=== PATIENT | female | born 1980 | race Caucasian/White ===

== ENCOUNTER → 2017-03-08 | Outpatient (CLI) | payer MEDICARE, SELFPAY | PROVIDERS: Visit Provider Nurse Practitioner Obstetrics & Gynecology | DX: N76.4 Abscess of vulva (principal); N92.0 Excessive and frequent menstruation with regular cycle | CPT/HCPCS: 87070 ==

== ENCOUNTER → 2017-04-10 15:02 | Outpatient (CLI) | payer MEDICARE, MEDICAID, SELFPAY ==
[2017-04-13 08:48] LABS: FSH 5.5 mIU/mL (.); LH 2.8 mIU/mL (.)
== END ==
PROVIDERS: PCP Emergency Medicine; Visit Provider Nurse Practitioner Obstetrics & Gynecology
DX: N93.9 Abnormal uterine and vaginal bleeding, unspecified (principal)
CPT/HCPCS: 36415; 83001; 83002

== ENCOUNTER 2017-04-24 10:45 | Observation (INO) | payer MEDICARE, MEDICAID, SELFPAY ==
[2017-04-24] VITALS (22 sets, daily range): BP systolic 103–138; BP diastolic 55–86; PULSE 18–106; RESP 16–20; TEMP 36.3–43; O2SAT 85–100; BMI 33.7
--- NOTE | 2017-04-24 07:03 | P.PN_ITS ---
[facility] Anesthesia Checklist - Patient Identification Patient Identification: Arm Band, Verbal (Name & ) - Structural Data Admitted From: Home [facility] for Planned Operative Procedure(s) Verified: Yes Verified Documents: Surgical Consent - NPO Status Verified Time NPO: 03:00 - Chart Verification Results Verified: BMP - Additional verifications Patient : No Anesthesia Reactions: No Hx Blood Transfusions: No Blood Transfusion Reaction: No Cephalosporin Allergy: No Previous Colonoscopy: No - Cardiovascular Assessment Heart Sounds: S1 & S2 Pulse Strength: Baseline Pulse Rhythm: Regular Peripheral Edema: No - Airway Assessment C-Spine Mobility Assessed: Yes TMJ Mobility Assessed: Yes Dentition: Good Dentition - Neurological Assessment Level of Consciousness: Awake, Alert, Appropriate Hx Seizures: No Numbness or tingling in extremities: No - Genitourinary Assessment Voided vocational examiner to O.R.: Yes - Anesthesia Plan Anesthesia Risk discussed: Yes ASA Class: III Anesthesia Type: General [facility] Anesthesia HX I have reviewed the patient's past medical history: Yes Medical History: Reports:: Anxiety, Asthma, Cancer (uterine), Hypertension, Migraine, Seizures Denies:: Diabetes Mellitus Type 1, Diabetes Mellitus Type 2, Internal Pacemaker, MRSA Other Surgeries: Yes: No Previous Surgery, Other. No: Pacemaker Amputation: No Fractures: No *Family Hx:: Cancer, Hypertension, Diabetes, Heart Attack, Hyperlipidemia, Asthma
[2017-04-24 07:23] LABS: Basophils % 0.4 % (0.1-2.0); Eosinophils # 0.1 K/mm3 (0.0-0.4); Eosinophils % 1.9 % (0.1-12.0); Hematocrit 41.1 % (37.0-47.0); Hemoglobin 13.3 g/dL (12.2-16.2); Lymphocytes # 1.9 K/mm3 (0.7-4.5); Lymphocytes % 24.8 K/mm3 (10-50); Mean Corpuscular HGB Conc 32.3 g/dL (31.8-35.4); Mean Corpuscular Hemoglobin 29.3 pg (27.0-31.2); Mean Corpuscular Volume 90.8 fl (81-99); Mean Platelet Volume 7.9 fl (7.4-10.4); Monocytes # 0.5 K/mm3 (0.1-1.0); Monocytes % 6.6 % (1.7-9.3); Neutrophils % 66.3 % (37.0-80.0); Platelet Count 158 K/mm3 (142-424); Red Blood Count 4.53 M/mm3 (4.20-5.40); Red Cell Distribution Width 13.8 % (11.5-17.5); White Blood Count 7.6 K/mm3 (4.8-10.8)
[2017-04-24 07:40] LABS: HCG Qualitative, Serum Negative (Negative)
[2017-04-24 07:46] LABS: Anion Gap 12.6 mEq/L (5-15); Blood Urea Nitrogen 4 mg/dL (7-18); Carbon Dioxide 25 mmol/L (21.0-32.0); Chloride 106 mmol/L (98-107); Creatinine Clearance Estimated 155 mL/min (0-300); Estimated Glomerular Filt Rate 70 ml/min (>60); GFR (African American) 85 ML/MIN (>60); Glucose 100 mg/dL (74-106); Potassium 3.6 mmoL/L (3.5-5.1); Sodium 140 mmol/L (136-145)
--- NOTE | 2017-04-24 09:55 | HMH.OPNOTE ---
Date of procedure: 04/24/17 Pre-op Diagnosis:: Menorrhagia, dysmenorrhea, irregular periods, pelvic pain Post-op diagnosis:: same Procedure performed:: Laparoscopically assisted vaginal hysterectomy, bilateral salpingectomy Surgeon:: Harmeet Medina MD Pharmacist Critical Care(s):: Cheryl Pederson AUDIO VISUAL PRODUCTION SPECIALIST:: Beck Ramos Anesthesia: GETA Estimated blood loss (mL): 400 Clinical Note:: She is a 36-year-old lady who complains of heavy painful periods. On examination of her uterus it was exquisitely tender to palpate. She also has irregular periods. After having discussed the risks and benefits she elected to have a left apically assisted vaginal hysterectomy and bilateral salpingectomy. Operative findings:: She had a normal-appearing anteverted uterus that was somewhat bulky. Both ovaries and tubes appeared normal. The upper abdomen as well as the pelvis appeared noted Operative note:: She was taken to the operating room where general anesthesia was found to be adequate. She was prepped and draped in the normal sterile fashion in the semilithotomy position. A weighted speculum was placed in the vagina and the anterior lip of the cervix was grasped with a tenaculum. I then inserted a Jazlyn uterine manipulator into the uterine cavity and insufflated the balloon. I changed gloves and injected 10 cc of 0.5% ropivacaine around the umbilicus. I made a small incision within the umbilicus and inserted a Veress needle into the abdominal cavity. The abdominal cavity was then insufflated with carbon dioxide gas to a pressure of 20 mmHg. I then inserted an 11 mm trocar under direct vision. I injected through and through the abdominal wall in the midline, made a small incision here and inserted a 5 mm trocar under direct vision. I then identified the inferior epigastric arteries on the left side, injected through and through and inserted an 11 mm trocar under direct vision. An 11 mm trocar was similarly placed in the right lower quadrant. The left round ligament was then cut with harmonic scalpel. This was followed by the left tube which was cut through with harmonic scalpel. I then grasped the utero-ovarian ligament and using harmonic scalpel on coagulation mode I cut through this. I then took down the bladder anteriorly to the midline. I took down the posterior aspect of the broad ligament to the level of the uterosacral ligament on the left side. I then skeletonized the uterine arteries on the left side and applied hemoclips to the uterine arteries. Staying adjacent to the cervix I then cauterized the uterine arteries and cut them with harmonic scalpel. I then further freed up the bladder anteriorly. I then turned my attention to the right side where I took down the right round ligament. This is followed by the anterior peritoneum where I joined up with the midline on the other side. I further took down the bladder anteriorly. Followed by the right tube and using I then took down the posterior aspect of the broad ligament to the level of the uterosacral the left side. The uterine arteries on the right side were then skeletonized and hemoclips were applied. Using harmonic scalpel adjacent to the cervix I took down the uterine arteries with coagulation mode. At this point in time was noted that the uterus was completely ischemic. I further took down the bladder at this point. The right tube was then grasped at its distal end and using harmonic scalpel I cut along the mesosalpinx. The tube was removed. This is simply performed on the patient's left side. Both ovaries appeared normal. After once again assuring hemostasis we then turned our attention to the vaginal portion of the surgery. Patient was placed in the lithotomy position and a weighted speculum is placed in the vagina. The anterior and posterior lip of the cervix were grasped with Walls tenacula. I then injected 20 cc of 1% Xylocaine with epinephrine circumferentially about the cervix. I
--- NOTE | 2017-04-24 10:06 | HMH.ANESI ---
[facility] Anesthesia Record Part I Intake, IV Amount: 900 Estimated blood loss (mL): 400 Urine output (mL): 300 Blood Products used (#): none Blood Pressure: 138/69 SaO2: 100 Pulse Rate: 106 Respiratory Rate: 18 Temperature: 97.7 F Patient is:: Drowsy Stable to PACU at:: 10:06
--- NOTE | 2017-04-24 10:08 | P.OP_ITS ---
Date of procedure: 04/24/17 Pre-op Diagnosis:: Menorrhagia, dysmenorrhea, irregular periods, pelvic pain Post-op diagnosis:: same Procedure performed:: Laparoscopically assisted vaginal hysterectomy, bilateral salpingectomy Surgeon:: Harmeet Medina MD Armored Machine Operator(s):: Cheryl Pederson ELECTRICAL ACCESSORIES I ASSEMBLER:: Beck Ramos Anesthesia: GETA Estimated blood loss (mL): 400 Clinical Note:: She is a 36-year-old lady who complains of heavy painful periods. On examination of her uterus it was exquisitely tender to palpate. She also has irregular periods. After having discussed the risks and benefits she elected to have a left apically assisted vaginal hysterectomy and bilateral salpingectomy. Operative findings:: She had a normal-appearing anteverted uterus that was somewhat bulky. Both ovaries and tubes appeared normal. The upper abdomen as well as the pelvis appeared noted Operative note:: She was taken to the operating room where general anesthesia was found to be adequate. She was prepped and draped in the normal sterile fashion in the semilithotomy position. A weighted speculum was placed in the vagina and the anterior lip of the cervix was grasped with a tenaculum. I then inserted a Jazlyn uterine manipulator into the uterine cavity and insufflated the balloon. I changed gloves and injected 10 cc of 0.5% ropivacaine around the umbilicus. I made a small incision within the umbilicus and inserted a Veress needle into the abdominal cavity. The abdominal cavity was then insufflated with carbon dioxide gas to a pressure of 20 mmHg. I then inserted an 11 mm trocar under direct vision. I injected through and through the abdominal wall in the midline , made a small incision here and inserted a 5 mm trocar under direct vision. I then identified the inferior epigastric arteries on the left side, injected through and through and inserted an 11 mm trocar under direct vision. An 11 mm trocar was similarly placed in the right lower quadrant. The left round ligament was then cut with harmonic scalpel. This was followed by the left tube which was cut through with harmonic scalpel. I then grasped the utero-ovarian ligament and using harmonic scalpel on coagulation mode I cut through this. I then took down the bladder anteriorly to the midline. I took down the posterior aspect of the broad ligament to the level of the uterosacral ligament on the left side. I then skeletonized the uterine arteries on the left side and applied hemoclips to the uterine arteries. Staying adjacent to the cervix I then cauterized the uterine arteries and cut them with harmonic scalpel. I then further freed up the bladder anteriorly. I then turned my attention to the right side where I took down the right round ligament. This is followed by the anterior peritoneum where I joined up with the midline on the other side. I further took down the bladder anteriorly. Followed by the right tube and using I then took down the posterior aspect of the broad ligament to the level of the uterosacral the left side. The uterine arteries on the right side were then skeletonized and hemoclips were applied. Using harmonic scalpel adjacent to the cervix I took down the uterine arteries with coagulation mode. At this point in time was noted that the uterus was completely ischemic. I further took down the bladder at this point. The right tube was then grasped at its distal end and using harmonic scalpel I cut along the mesosalpinx. The tube was removed. This is simply performed on the patient's left side. Both ovaries appeared normal. After once again assuring hemostasis we then turned our attention to the vaginal portion of the surgery.
--- NOTE | 2017-04-24 10:10 | P.PN_ITS ---
[facility] Anesthesia Record Part I Intake, IV Amount: 900 Estimated blood loss (mL): 400 Urine output (mL): 300 Blood Products used (#): none Blood Pressure: 138/69 SaO2: 100 Pulse Rate: 106 Respiratory Rate: 18 Temperature: 97.7 F Patient is:: Drowsy Stable to PACU at:: 10:06
--- NOTE | 2017-04-24 10:11 | P.PN_ITS ---
[facility] Anesthesia Record Part II Discharge Time: 10:36 Destination: Nursing Department PACU nurse assessment reviewed?: Yes Patient Condition:: Good Anesthesia Complications:: None
--- NOTE | 2017-04-24 10:27 | PC.NURSE ---
LATE ENTRY 10:27 REPORT RECEIVED FROM Keiko OLIVEIRA RN. PATIENT ARRIVED ON UNIT AT 10:30.
--- NOTE | 2017-04-24 10:54 | PC.NURSE ---
1006-REPORT RECEIVED FROM PIOTR BAGLEY/JORGE CORDOBA
--- NOTE | 2017-04-24 10:56 | PC.NURSE ---
1016-PT EATING ICE CHIPS W/OUT DIFFICULTY
--- NOTE | 2017-04-24 11:02 | PC.NURSE ---
1034-DETAILED REPORT CALLED TO EDUARDORN. PT CONTINUES TO EAT ICE CHIPS W/OUT DIFFICULTY. DENIES PAIN OR NAUSEA. 1036-PT TRANSPORTED TO OB DEPT ROOM [facility] BED W/RAILS UP PER PIOTR SALAZAR & PIOTR GRIDER. PT LEFT IN CARE OF PIOTR CLARK W/BED LOCKED IN LOWEST POSITION. VSS. FAMILY AT BEDSIDE. PT STABLE.
[2017-04-24 13:45] LABS: Microscopic,Cath URINE MICROSCOPIC (MICROSCOPIC)
[2017-04-24 13:49] LABS: Appearance,Urine/Cath CLEAR (Clear); Bilirubin,Cath Negative (Negative); Blood, Urine/Cath TRACE-I (Negative); Color,Urine/Cath YELLOW (Yellow); Glucose,Urine/Cath (UA) Negative (Negative); Ketones,Urine/Cath Negative (Negative); Leukocyte Esterase,Cath Negative (Negative); Nitrate,Cath Negative (Negative); PH,Urine/Cath 5.5 (5.0-8.5); Protein,Urine/Cath Negative (Negative); Specific Gravity, Urine/Cath >= 1.030 (1.005-1.030); Urobilinogen,Cath 0.2 EU/dl (0.2)
[2017-04-24 14:11] LABS: Bacteria,Urine/Cath 2+ /lpf; RBC,Urine/Cath Occasional # /hpf (0-3)
[2017-04-24 16:24] LABS: Hematocrit 37.2 % (37.0-47.0); Hemoglobin 12.2 g/dL (12.2-16.2)
--- NOTE | 2017-04-24 16:24 | PC.NURSE ---
PATIENT SITTING UP IN BED THIS AFTERNOON WITH CAREGIVER AT BEDSIDE. LUNGS WERE CTA AND BOWEL SOUNDS ACTIVE. NOTED 4 DSG TO ABDOMEN. DSG TO RIGHT OF PTS. ABDOMEN NOTED TO HAVE SEROSANG. DRAINAGE ON IT. UNCHANGED FROM PREVIOUS ASSESSMENT. PT. REPORTS TENDER STOMACH AND RATING PAIN A 5/10. STATES I FEEL GOOD AND THAT PAIN MEDICINE IS REALLY HELPING. PT. DENIES ANY N/V. VITALS HAVE REMAINED STABLE. NOTED SCANT AMOUNT OF BLEEDING VAGINALLY. SCUDS APPLIED TO BLE. INCENTIVE JEFFERY. DEVICE AT BEDSIDE AND PATIENT HAS BEEN USING THIS ALL AFTERNOON. PT. TOLERATING CLEAR LIQUID DIET, AND REQUESTING REAL FOOD. KLEIN PATENT AND DRAINING YELLOW URINE. WILL D/C UPON DR. OREILLY'S ORDERS. CALL LIGHT WITHIN REACH AND SAFETY MEASURES IN PLACE. WILL CONTINUE TO MONITOR.
--- NOTE | 2017-04-24 16:50 | PC.NURSE ---
REPORT GIVEN TO DR. OREILLY. STATED OKAY TO D/C KLEIN AFTER DINNER AND PATIENT IS OKAY TO EAT WHAT SHE WANTS. ALSO APPLY BAND AIDES TO PATIENTS ABD DSG AFTER SHOWER. MD AT BEDSIDE
--- NOTE | 2017-04-24 18:00 | PC.NURSE ---
D/C KLEIN CATHETER AT THIS TIME. 900 ML/HR OUTPUT. GO PATIENT UP TO SHOWER AT THIS TIME AND CHANGED BED. PATIENT TOLERATED WELL. CHANGED PATIENTS ABDOMINAL DSG TO BAND AIDS PER DR. OREILLY. STARTED NEW IV TO PTS. LEFT HAND AND D/C IV TO PTS RIGHT FA. CATHETER INTACT.
--- NOTE | 2017-04-24 18:58 | PC.NURSE ---
HANDOFF GIVEN TO ALANIS SALDAÑA
--- NOTE | 2017-04-24 19:30 | PC.NURSE ---
REPORT RECEIVED FROM PIOTR CLARK.
--- NOTE | 2017-04-24 19:40 | PC.NURSE ---
PT MEDICATED WITH DILAUDID 4MG IV PER REQUEST.
--- NOTE | 2017-04-24 20:15 | PC.NURSE ---
PT REPORTS COMPLETE RELIEF FROM PAIN AFTER RECEIVING DILAUDID.
--- NOTE | 2017-04-24 21:00 | PC.NURSE ---
PT VOMITED LARGE AMT OF EMESIS IN TRASH CAN. PT DENIES BEING NAUSEATED AND STATES THAT SHE THINKS IT'S BECAUSE SHE DIDN'T GET TO TAKE HER PROTONIX PILL THIS MORNING. EMESIS CLEAR. PHENERGAN 12.5MG IVPB (25MLS NS) GIVEN.
--- NOTE | 2017-04-24 23:25 | PC.NURSE ---
UPON ENTERING ROOM TO HANG SCHEDULED CLINDAMYCIN AND TORADOL, PT WAS SLEEPING SOUNDLY. PT AWAKEN TO SCAN MEDS AND THEN QUICKLY BACK ASLEEP. PT DENIED ANY PAIN AT THAT TIME.
--- NOTE | 2017-04-24 23:30 | PC.NURSE ---
REPORT GIVEN TO PIOTR HASKINS.
[2017-04-25 04:20] VITALS: BP 107/51; PULSE 83; RESP 18; TEMP 37.1; O2SAT 96
--- NOTE | 2017-04-25 04:30 | PC.NURSE ---
pt remains stable at this time. no needs voiced, no nausea. Ambulating well. VSS
[2017-04-25 06:36] LABS: Basophils % 0.2 % (0.1-2.0); Eosinophils # 0.1 K/mm3 (0.0-0.4); Eosinophils % 0.7 % (0.1-12.0); Hematocrit 33.6 % (37.0-47.0); Lymphocytes # 2.1 K/mm3 (0.7-4.5); Lymphocytes % 23.7 K/mm3 (10-50); Mean Corpuscular HGB Conc 32.6 g/dL (31.8-35.4); Mean Corpuscular Hemoglobin 30.2 pg (27.0-31.2); Mean Corpuscular Volume 92.4 fl (81-99); Mean Platelet Volume 7.9 fl (7.4-10.4); Monocytes # 0.5 K/mm3 (0.1-1.0); Neutrophils # 6.3 K/mm3 (1.8-7.8); Neutrophils % 70.4 % (37.0-80.0); Platelet Count 133 K/mm3 (142-424); Red Blood Count 3.64 M/mm3 (4.20-5.40); Red Cell Distribution Width 13.8 % (11.5-17.5)
[2017-04-25 06:42] LABS: Anion Gap 10.8 mEq/L (5-15); Blood Urea Nitrogen 7 mg/dL (7-18); Carbon Dioxide 29 mmol/L (21.0-32.0); Chloride 108 mmol/L (98-107); Creatinine Clearance Estimated 154 mL/min (0-300); Creatinine,Serum 0.91 mg/dL (0.55-1.02); Estimated Glomerular Filt Rate 69 ml/min (>60); GFR (African American) 84 ML/MIN (>60); Glucose 107 mg/dL (74-106); Potassium 3.8 mmoL/L (3.5-5.1); Sodium 144 mmol/L (136-145)
--- NOTE | 2017-04-25 07:35 | HMH.PHAVTE ---
[facility] Pharmacy VTE Monitoring - Patient Demographics Admission date: 04/24/17 Report Date: 04/25/17 Time: 07:35 Allergies/Adverse Reactions: Patient Allergies Penicillins [PENICILLINS] Allergy (Intermediate, Verified 04/21/17 09:20) Rash morphine Allergy (Verified 04/24/17 06:35) Palpitations ibuprofen Allergy (Severe, Uncoded 04/21/17 10:05) unknown Height: 1.85 m Weight: 116.12 kg - VTE Risk Labs: VTE Related Lab Results Hgb 11.0 g/dL (12.2-16.2) L 04/25/17 06:05 Hct 33.6 % (37.0-47.0) L 04/25/17 06:05 Plt Count 133 K/mm3 (142-424) L 04/25/17 06:05 BUN 7 mg/dL (7-18) D 04/25/17 06:05 Creatinine 0.91 mg/dL (0.55-1.02) 04/25/17 06:05 Estimated Creat Clear 154 mL/min (0-300) 04/25/17 06:05 Clinical Trial Participant: No - Prophylaxis VTE Prophylaxis Ordered?: Yes Types of VTE Prophylaxis: IPCS Knee High, Pharmacological Location of Applied Device: Bilateral Lower Extremeties Pharmacologic Type: Enoxaparin
[2017-04-25 08:00] VITALS: BP 110/72; PULSE 88; RESP 17; TEMP 36.8; O2SAT 98
--- NOTE | 2017-04-25 08:11 | HMH.DCSUM ---
General - General Admission date: 04/24/17 Discharge date: 04/25/17 HPI HPI: She is a 36-year-old lady who complains of heavy painful periods. After having discussed the risks and benefits she elected to have a laparoscopically assisted vaginal hysterectomy and bilateral salpingectomy. Objective Vital signs: Temp Pulse Resp BP Pulse Ox 98.7 F 83 18 107/51 96 04/25/17 04:20 04/25/17 04:20 04/25/17 04:20 04/25/17 04:20 04/25/17 04:20 no acute distress - *Routine Abdominal Exam Present: soft, normoactive bowel sounds Hospital Course Hospital Course: On April 24, 2017 she underwent a laparoscopically assisted vaginal hysterectomy and bilateral salpingectomy. She has done well postoperatively and has remained afebrile throughout her hospitalization. She denies any shortness of breath, chest pain or calf tenderness. She has had a bowel movement. She is voiding well. Results Labs on day of discharge: Labs from last 24 hours 04/25/17 04/25/17 04/24/17 06:05 06:05 16:00 WBC 9.0 RBC 3.64 L Hgb 11.0 L 12.2 Hct 33.6 L 37.2 MCV 92.4 MCH 30.2 MCHC 32.6 RDW 13.8 Plt Count 133 L MPV 7.9 Neut % (Auto) 70.4 Lymph % (Auto) 23.7 [place] % (Auto) 5.0 Eos % (Auto) 0.7 Baso % (Auto) 0.2 Neut # (Auto) 6.3 Lymph # (Auto) 2.1 [place] # (Auto) 0.5 Eos # (Auto) 0.1 Baso # (Auto) 0.0 Sodium 144 Potassium 3.8 Chloride 108 H Carbon Dioxide 29 Anion Gap 10.8 BUN 7 D Creatinine 0.91 Estimated Creat Clear 154 Estimated GFR 69 Est GFR ( Amer) 84 Glucose 107 H Urine Color Urine Appearance Urine pH Ur Specific [place] Urine Protein Urine Glucose (UA) Urine Ketones Urine Blood Urine Nitrate Urine Bilirubin Urine Urobilinogen Ur Leukocyte Esterase Urine RBC Urine WBC Ur Squamous Epith Cells Urine Bacteria Urine Trichomonas 04/24/17 08:00 WBC RBC Hgb Hct MCV MCH MCHC RDW Plt Count MPV Neut % (Auto) Lymph % (Auto) [place] % (Auto) Eos % (Auto) Baso % (Auto) Neut # (Auto) Lymph # (Auto) [place] # (Auto) Eos # (Auto) Baso # (Auto) Sodium Potassium Chloride Carbon Dioxide Anion Gap BUN Creatinine Estimated Creat Clear Estimated GFR Est GFR ( Amer) Glucose Urine Color Yellow Urine Appearance Clear Urine pH 5.5 Ur Specific [place] >= 1.030 Urine Protein Negative Urine Glucose (UA) Negative Urine Ketones Negative Urine Blood Trace-i Urine Nitrate Negative Urine Bilirubin Negative Urine Urobilinogen 0.2 Ur Leukocyte Esterase Negative Urine RBC Occasional Urine WBC 3-5 Ur Squamous Epith Cells 5-10 Urine Bacteria 2+ A Urine Trichomonas 1+ Meds Home Medications Medication Instructions Recorded Confirmed Type bupropion HCl SR 150 mg tablet,12 150 mg PO DAILY 03/24/17 04/25/17 History hr sustained-release dwnlimgqjr-mynhjmxaobmjl-pgqcnfce 1 tab PO Q6H PRN 03/24/17 04/24/17 History 50 mg-325 mg-40 mg tablet levetiracetam 500 mg tablet 500 mg PO BID tab 03/24/17 04/24/17 History losartan 50 mg tablet 50 mg PO DAILY 03/24/17 04/25/17 History vitamins with calcium 1 tab PO DAILY 03/24/17 04/25/17 History no.72-iron 29 mg-folic acid 1 mg tablet risperidone 1 mg tablet 1 mg PO BID tab 03/24/17 04/24/17 History spironolactone 25 mg tablet 50 mg PO DAILY 03/24/17 04/25/17 History trazodone 100 mg tablet 100 mg PO HS PRN 03/24/17 04/25/17 History Medroxyprogesterone Acetate 10 mg PO DAILY 04/24/17 04/24/17 History [Provera] Omeprazole [Omeprazole 40mg 40 mg PO DAILY 04/24/17 04/24/17 History Capsule] Allergies Allergy/AdvReac Type Severity Reaction Status Date / Time Penicillins [PENICILLINS] Allergy Intermediate Rash Verified 04/21/17 09:20 morphine Allergy Palpitation Verified 04/24/17 06:35 s ibuprofen Allergy
--- NOTE | 2017-04-25 08:15 | P.DS_ITS ---
General - General Admission date: 04/24/17 Discharge date: 04/25/17 HPI HPI: She is a 36-year-old lady who complains of heavy painful periods. After having discussed the risks and benefits she elected to have a laparoscopically assisted vaginal hysterectomy and bilateral salpingectomy. Objective Vital signs: Temp Pulse Resp BP Pulse Ox 98.7 F 83 18 107/51 96 04/25/17 04:20 04/25/17 04:20 04/25/17 04:20 04/25/17 04:20 04/25/17 04:20 no acute distress - *Routine Abdominal Exam Present: soft, normoactive bowel sounds Hospital Course Hospital Course: On April 24, 2017 she underwent a laparoscopically assisted vaginal hysterectomy and bilateral salpingectomy. She has done well postoperatively and has remained afebrile throughout her hospitalization. She denies any shortness of breath, chest pain or calf tenderness. She has had a bowel movement. She is voiding well. Results Labs on day of discharge: Labs from last 24 hours 04/25/17 04/25/17 04/24/17 06:05 06:05 16:00 WBC 9.0 RBC 3.64 L Hgb 11.0 L 12.2 Hct 33.6 L 37.2 MCV 92.4 MCH 30.2 MCHC 32.6 RDW 13.8 Plt Count 133 L MPV 7.9 Neut % (Auto) 70.4 Lymph % (Auto) 23.7 [place] % (Auto) 5.0 Eos % (Auto) 0.7 Baso % (Auto) 0.2 Neut # (Auto) 6.3 Lymph # (Auto) 2.1 Rich # (Auto) 0.5 Eos # (Auto) 0.1 Baso # (Auto) 0.0 Sodium 144 Potassium 3.8 Chloride 108 H Carbon Dioxide 29 Anion Gap 10.8 BUN 7 D Creatinine 0.91 Estimated Creat Clear 154 Estimated GFR 69 Est GFR ( Amer) 84 Glucose 107 H Urine Color Urine Appearance Urine pH Ur Specific [place] Urine Protein Urine Glucose (UA) Urine Ketones Urine Blood Urine Nitrate Urine Bilirubin Urine Urobilinogen Ur Leukocyte Esterase Urine RBC Urine WBC Ur Squamous Epith Cells Urine Bacteria Urine Trichomonas 04/24/17 08:00 WBC RBC Hgb Hct MCV MCH MCHC RDW Plt Count MPV Neut % (Auto) Lymph % (Auto) [place] % (Auto) Eos % (Auto) Baso % (Auto) Neut # (Auto) Lymph # (Auto) Rich # (Auto) Eos # (Auto) Baso # (Auto) Sodium Potassium Chloride Carbon Dioxide Anion Gap BUN Creatinine Estimated Creat Clear Estimated GFR Est GFR ( Amer) Glucose Urine Color Yellow Urine Appearance Clear Urine pH 5.5 Ur Specific [place] >= 1.030 Urine Protein Negative Urine Glucose (UA) Negative Urine Ketones Negative Urine Blood Trace-i Urine Nitrate Negative Urine Bilirubin Negative Urine Urobilinogen 0.2 Ur Leukocyte Esterase Negative Urine RBC
--- NOTE | 2017-04-25 08:31 | PC.NURSE ---
Dr. Medina was in to see patient and new orders for discharge this am. Discontinued IV, site unremarkable, instructed on site care and changed bandaids to [address] Medina. Will proceed with discharge teachings
--- NOTE | 2017-04-25 08:44 | PC.NURSE ---
Discharge instructions given to patient, made follow up with Dr. Medina [id number]; Gave RX -Percocets, Motrin, Completed discharge teachings,no questions at this time, Pt and caregiver verbalized understanding.
== END 2017-04-25 09:01 | disposition home or self-care (01) ==
LOC: OB 04-25 07:15
PROVIDERS: Admitting Provider Nurse Practitioner Obstetrics & Gynecology; Family Provider Emergency Medicine; PCP Emergency Medicine; Visit Provider Nurse Practitioner Obstetrics & Gynecology
PROC: 0UT9FZZ Resection of Uterus, Via Natural or Artificial Opening With Percutaneous Endoscopic Assistance (ICD-10-PCS; CPT 58552; principal; 2017-04-24 07:30)
PROC: (CPT 58700; 2017-04-24 07:30)
DX: R10.2 Pelvic and perineal pain (principal); N92.0 Excessive and frequent menstruation with regular cycle; N94.6 Dysmenorrhea, unspecified
CPT/HCPCS: 58552; 36415; 80048; 81001; 84703; 85014; 85018; 85025; 87086; 88307; 93005; 96372; 96374; G0378; J0131; J1956; J2405; J2710

== ENCOUNTER → 2017-05-26 08:53 | Outpatient (CLI) | payer MEDICARE, MEDICAID, SELFPAY ==
[2017-05-26 09:33] LABS: Alanine Aminotransferase 57 U/L (12-78); Albumin Level 3.5 gm/dL (3.4-5.0); Albumin/Globulin Ratio 0.9 (1.1-1.8); Alkaline Phosphatase 73 U/L (46-116); Aspartate Amino Transferase 28 U/L (15-37); Bilirubin,Total 0.2 mg/dL (0.2-1.0); Blood Urea Nitrogen 9 mg/dL (7-18); Calcium 9.1 mg/dL (8.5-10.1); Carbon Dioxide 25 mmol/L (21.0-32.0); Chloride 104 mmol/L (98-107); Creatinine,Serum 1.07 mg/dL (0.55-1.02); Estimated Glomerular Filt Rate 57 ml/min (>60); GFR (African American) 69 ML/MIN (>60); Glucose 118 mg/dL (74-106); Sodium 139 mmol/L (136-145); Total Protein,Serum 7.5 gm/dL (6.4-8.2)
== END ==
PROVIDERS: Visit Provider Specialist
DX: R56.9 Unspecified convulsions (principal)
CPT/HCPCS: 36415; 80053

== ENCOUNTER → 2017-06-01 11:20 | Outpatient (CLI) | payer MEDICARE, MEDICAID, SELFPAY ==
[2017-06-01 12:00] LABS: Basophils % 0.5 % (0.1-2.0); Eosinophils # 0.2 K/mm3 (0.0-0.4); Eosinophils % 2.9 % (0.1-12.0); Hematocrit 43.8 % (37.0-47.0); Lymphocytes # 1.8 K/mm3 (0.7-4.5); Lymphocytes % 28.4 K/mm3 (10-50); Mean Corpuscular HGB Conc 31.9 g/dL (31.8-35.4); Mean Corpuscular Hemoglobin 29.6 pg (27.0-31.2); Mean Platelet Volume 7.6 fl (7.4-10.4); Monocytes # 0.3 K/mm3 (0.1-1.0); Monocytes % 5.3 % (1.7-9.3); Neutrophils % 62.9 % (37.0-80.0); Platelet Count 208 K/mm3 (142-424); Red Blood Count 4.71 M/mm3 (4.20-5.40); Red Cell Distribution Width 13.8 % (11.5-17.5); White Blood Count 6.4 K/mm3 (4.8-10.8)
[2017-06-01 14:06] LABS: Anion Gap 14.2 mEq/L (5-15); Blood Urea Nitrogen 8 mg/dL (7-18); Carbon Dioxide 26 mmol/L (21.0-32.0); Chloride 106 mmol/L (98-107); Creatinine,Serum 0.94 mg/dL (0.55-1.02); Estimated Glomerular Filt Rate 67 ml/min (>60); GFR (African American) 81 ML/MIN (>60); Glucose 90 mg/dL (74-106); Potassium 4.2 mmoL/L (3.5-5.1); Sodium 142 mmol/L (136-145)
== END ==
PROVIDERS: Family Provider Emergency Medicine; PCP Emergency Medicine; Visit Provider Physician Assistant
DX: R94.31 Abnormal electrocardiogram [ECG] [EKG] (principal); R00.0 Tachycardia, unspecified; R07.9 Chest pain, unspecified; R06.00 Dyspnea, unspecified; I10 Essential (primary) hypertension
CPT/HCPCS: 36415; 80048; 85025; 93225

== ENCOUNTER → 2017-06-05 08:27 | Outpatient (POV) | payer MEDICARE, MEDICAID, SELFPAY | PROVIDERS: Family Provider Emergency Medicine; PCP Emergency Medicine; Visit Provider Specialist | DX: G40.909 Epilepsy, unspecified, not intractable, without status epilepticus (principal) | CPT/HCPCS: 95816 ==

== ENCOUNTER → 2017-06-05 10:28 | Outpatient (CLI) | payer MEDICARE, MEDICAID, SELFPAY | PROVIDERS: Family Provider Emergency Medicine; PCP Emergency Medicine; Visit Provider Specialist | DX: G40.909 Epilepsy, unspecified, not intractable, without status epilepticus (principal) ==

== ENCOUNTER → 2017-06-21 12:33 | Outpatient (CLI) | payer MEDICARE, MEDICAID, SELFPAY ==
--- NOTE | 2017-06-21 12:36 | XR_ITS ---
XR thoracic spine 3V COMPARISON: None HISTORY: Back TECHNIQUE: AP and lateral views and swimmer's view cervicothoracic junction FINDINGS: There is normal curvature and alignment. All thoracic vertebrae appear intact. There is no degenerative change. Is no paraspinal mass. All pedicles are intact. IMPRESSION: Negative thoracic spine.
--- NOTE | 2017-06-21 12:36 | XR_ITS ---
XR lumbar spine min 4V COMPARISON: None HISTORY: Low back pain TECHNIQUE: AP lateral and oblique views and spot view lumbosacral junction FINDINGS: There is normal curvature and alignment. All lumbar vertebrae appear intact and disc spaces are well maintained throughout. There is no pars defect. SI joints are normal. IMPRESSION: Normal lumbar spine
== END ==
PROVIDERS: PCP Emergency Medicine; Visit Provider Nurse Practitioner Family
DX: M54.5 Low back pain (principal); M54.6 Pain in thoracic spine
CPT/HCPCS: 72072; 72110

== ENCOUNTER → 2017-06-27 07:36 | Outpatient (CLI) | payer MEDICARE, MEDICAID, SELFPAY ==
[2017-06-30 17:41] LABS: Levetiracetam (Keppra) 3.3 ug/mL (10.0-40.0)
== END ==
PROVIDERS: Family Provider Emergency Medicine; PCP Emergency Medicine; Visit Provider Specialist
DX: G40.909 Epilepsy, unspecified, not intractable, without status epilepticus (principal)
CPT/HCPCS: 36415; 80177

== ENCOUNTER 2017-07-20 14:00 | Outpatient (RCR) | payer MEDICARE, MEDICAID, SELFPAY ==
--- NOTE | 2017-06-27 13:45 | HMH.PTOPEV ---
Rehab Outpatient Evaluation Rehab OP Evaluation Start: 06/27/17 13:29 Freq: Status: Active Protocol: Document 06/27/17 13:29 PWRAUL (Rec: 06/27/17 13:45 PWRAUL [id number]) Electronically Signed By Roberto Huertas PT 06/27/17 13:29 Outpatient Therapy Subjective History Subjective History THis is the initial Physical Therapy evaluation for Deann Alicia. Pt is a 36 y/o female referred to PT for c/o LBP. Pt rpeorts pain began ~ 4 weeks ago after a slip and fall. Pt reports she was walking across the kitchen floor and slipped on some water. Pt reports she leveled out and landed flat on back. Pt reports pain since this incident. Chief Complaint Pain Spasms Stiff Symptom Type Ache Throb Sharp Dull Shooting Symptoms Relieved By Rest/Positioning Heat Symptoms Aggravated By Standing Physical Activity Twisting Walking Prior Functional Limitations None Current Functional Limitations Housework Sleeping Standing Recreation Activity Walking Symptom Description Constant but Variable Level of pain today (0-10) 8 Pain scale - at its best (0-10) 2 Pain scale - at its worst (0-10) 8 Lumbopelvic Eval Posture Lumbar Spine Posture Standing Position Increased Lordosis Assistive device Assistive Devices None / NA Palapation tenderness bilateral thoracic spinal tenderness No lumbar spinal tenderness Yes paraspinal tenderness Yes buttock tenderness No Lumbar/Sacral Palpation Findings Tenderness Lumbar/Sacral Palpation Overall Comment TTP along lumbar spine and paraspinal muscles 2/4 Range of Motion Lumbar Spine Active Flexion Range of 0-80 Motion (degrees) Lumbar Spine Active Extension Range of 0-25 Motion (degrees) Left Lumbar Spine Lateral Flexion Active 0-30 Range of Motion (degrees) Right Lumbar Spine Lateral Flexion 0-30 Active Range of Motion (degrees)
== END 2017-07-20 14:01 | disposition home or self-care (01) ==
LOC: PT 14:00
PROVIDERS: Family Provider Emergency Medicine; PCP Emergency Medicine; Visit Provider Nurse Practitioner Family
DX: M54.5 Low back pain (principal)
CPT/HCPCS: 97110; 97140

== ENCOUNTER → 2017-12-15 09:59 | Outpatient (CLI) | payer MEDICARE, MEDICAID, SELFPAY ==
[2017-12-15 10:41] LABS: Basophils # 0.1 K/mm3 (0-0.2); Basophils % 0.7 % (0.1-2.0); Eosinophils # 0.5 K/mm3 (0.0-0.4); Eosinophils % 6.3 % (0.1-12.0); Hematocrit 44.8 % (37.0-47.0); Hemoglobin 14.4 g/dL (12.2-16.2); Lymphocytes # 1.9 K/mm3 (0.7-4.5); Lymphocytes % 23.5 K/mm3 (10-50); Mean Corpuscular HGB Conc 32.2 g/dL (31.8-35.4); Mean Corpuscular Hemoglobin 30.2 pg (27.0-31.2); Mean Corpuscular Volume 93.7 fl (81-99); Mean Platelet Volume 7.3 fl (7.4-10.4); Monocytes # 0.5 K/mm3 (0.1-1.0); Monocytes % 5.8 % (1.7-9.3); Neutrophils # 5.1 K/mm3 (1.8-7.8); Neutrophils % 63.6 % (37.0-80.0); Platelet Count 204 K/mm3 (142-424); Red Blood Count 4.78 M/mm3 (4.20-5.40); Red Cell Distribution Width 13.6 % (11.5-17.5)
== END ==
PROVIDERS: Physician Assistant; Family Provider Emergency Medicine; PCP Emergency Medicine; Visit Provider Internal Medicine Cardiovascular Disease
DX: R06.09 Other forms of dyspnea (principal); R94.31 Abnormal electrocardiogram [ECG] [EKG]
CPT/HCPCS: 36415; 83880; 85025

== ENCOUNTER → 2018-01-01 11:59 | Outpatient (CLI) | payer MEDICARE, MEDICAID, SELFPAY ==
--- NOTE | 2018-01-01 12:00 | CA_ITS ---
PROCEDURE: 2-D M-mode and color Doppler study INDICATIONS FOR THE TEST: Chest pain COPD Heart Murmur Tobacco Smoking+ Palpitations Fatigue Syncope Edema+ Hypertension+Diabetes Mellitus Rheumatic Fever SOB+MAIN Obesity Hyperlipidemia+ Family History HD Additional History PATIENT INFORMATION HEIGHT: 73 WEIGHT:263 GENDER: Female B/P:111/73 2-D/M-MODE INTERPRETATION: 2-D MEASUREMENTS OBSERVED VALUES IN CMS Right Ventricular Dimension (RVDd) 3.0 Interventricular Septum (Thickness)(IVsd) 1.3 Left Ventricular Internal Dimensions(LVIDd) 5.6 Left Ventricular Posterior Wall (Thickness)(LVPWd) 0.7 Aortic Root 3.2 Aortic Cusp Separation 2.0 Left Atrial Dimensions (LAD) 3.7 2D 1. Left atrium is mildly enlarged, left ventricle is normal size, mild concentric left ventricular hypertrophy, visually estimated ejection fraction of 50% with no regional wall motion abnormality. 2. The right atrium and right ventricle are normal size and contractility. 3. The aortic valve is minimally thickened and fibrosed. 4. The mitral and tricuspid valvular grossly normal. 5. The pulmonic valve is poorly visualized. 6. No significant pericardial effusion noted. DOPPLER INTERROGATION: Doppler interrogation of the aortic, mitral and tricuspid valvular presence of mild mitral and tricuspid regurgitation, tricuspid regurgitation jet velocity is insufficient for calculation of the right ventricular systolic pressure, grade 1 diastolic dysfunction without tissue Doppler evidence of raised left atrial pressure. CONCLUSION: 1. Mildly enlarged left atrium, normal left ventricular size, visually estimated ejection fraction 50% with no regional wall motion abnormality, grade 1 diastolic dysfunction seen without tissue Doppler evidence of raised left atrial pressure. 2. Mild mitral and tricuspid regurgitation 3. No significant pericardial effusion noted.
== END ==
PROVIDERS: Family Provider Emergency Medicine; PCP Emergency Medicine; Visit Provider Internal Medicine Cardiovascular Disease
DX: R06.09 Other forms of dyspnea
CPT/HCPCS: 93306

== ENCOUNTER → 2018-01-05 11:07 | Outpatient (CLI) | payer MEDICARE, MEDICAID, SELFPAY ==
[2018-01-05 13:11] LABS: Anion Gap 15.4 mEq/L (5-15); Blood Urea Nitrogen 5 mg/dL (7-18); Carbon Dioxide 25 mmol/L (21.0-32.0); Chloride 106 mmol/L (98-107); Creatinine,Serum 0.73 mg/dL (0.55-1.02); Estimated Glomerular Filt Rate 89 ml/min (>60); GFR (African American) 107 ML/MIN (>60); Glucose 93 mg/dL (74-106); Sodium 142 mmol/L (136-145)
[2018-01-05 13:15] LABS: Potassium 4.4 mmoL/L (3.5-5.1)
== END ==
PROVIDERS: Family Provider Emergency Medicine; PCP Emergency Medicine; Visit Provider Internal Medicine Cardiovascular Disease
DX: M54.5 Low back pain (principal); I10 Essential (primary) hypertension; M54.6 Pain in thoracic spine; R06.00 Dyspnea, unspecified; R60.9 Edema, unspecified; Z09 Encounter for follow-up examination after completed treatment for conditions other than malignant neoplasm; R06.09 Other forms of dyspnea; F17.200 Nicotine dependence, unspecified, uncomplicated
CPT/HCPCS: 36415; 80048; 83880

== ENCOUNTER → 2018-02-27 18:13 | Outpatient (CLI) | payer MEDICARE, MEDICAID, SELFPAY ==
[2018-02-27 20:07] LABS: Amphetamine/Metha Screen,Urine Negative ng/mL (<1000); Barbiturates Screen,Urine Negative ng/mL (<200); Benzodiazepines Screen,Urine Negative ng/mL (<200); Cannabinoid Screen,Urine Negative ng/mL (<50); Cocaine Screen,Urine Negative ng/mL (<300); Methadone Screen,Urine Negative ng/mL (<300); Opiate Screen,Urine Negative ng/mL (<300); Phencyclidine Screen,Urine Negative ng/mL (<25)
== END ==
PROVIDERS: Visit Provider Nurse Practitioner Family
DX: Z79.899 Other long term (current) drug therapy (principal)
CPT/HCPCS: 80305

== ENCOUNTER → 2018-04-05 14:09 | Outpatient (CLI) | payer MEDICARE, MEDICAID, SELFPAY | PROVIDERS: Visit Provider Internal Medicine Cardiovascular Disease | DX: R06.00 Dyspnea, unspecified (principal) | CPT/HCPCS: 36415; 83880 ==

== ENCOUNTER → 2018-04-16 12:26 | Outpatient (CLI) | payer MEDICARE, MEDICAID, SELFPAY ==
--- NOTE | 2018-04-16 12:29 | CA_ITS ---
PROCEDURE: 2-D M-mode and color Doppler study INDICATIONS FOR THE TEST: Chest pain COPD Heart Murmur Tobacco Smoking+ Palpitations Fatigue Syncope Edema Hypertension+Diabetes Mellitus Rheumatic Fever SOB MAIN+Obesity Hyperlipidemia Family History HD Additional History LIMITED WINDOWS-OVERLAYING LUNG/BREATHING,lucho,dizziness PATIENT INFORMATION HEIGHT: 73 WEIGHT:258 GENDER: Female B/P:128/80 2-D/M-MODE INTERPRETATION: 2-D MEASUREMENTS OBSERVED VALUES IN CMS Right Ventricular Dimension (RVDd) 3.2 Interventricular Septum (Thickness)(IVsd) 0.8 Left Ventricular Internal Dimensions(LVIDd) 5.1 Left Ventricular Posterior Wall (Thickness)(LVPWd) 0.4 Aortic Root 2.7 Aortic Cusp Separation 1.8 Left Atrial Dimensions (LAD) 3.7 2D 1. Left atrium is mildly enlarged, left ventricle is normal size, there is no concentric left ventricular hypertrophy, visually estimated ejection fraction 55% with no regional wall motion abnormality, endocardial surfaces are very poorly visualized. 2. The right atrium and right ventricle are mildly enlarged with normal contractility. 3. The aortic valve is minimally thickened and fibrosed. 4. The mitral and tricuspid valve leaflets are minimally thickened 5. The pulmonic valve is poorly visualized. 6. No significant pericardial effusion noted. DOPPLER INTERROGATION: Doppler interrogation of the aortic, mitral and tricuspid valvular presence of mild mitral and tricuspid regurgitation, tricuspid regurgitation jet velocity is inadequate for calculation of the right ventricular systolic pressure, diastolic parameters are inconclusive. CONCLUSION: 1. Technically difficult study because of the patient's factor and poor acoustic windows 2. Mildly enlarged left atrium, normal left ventricular size, visually estimated ejection 55 % with no regional wall motion abnormality, diastolic parameters are inconclusive. 3. Mild mitral and tricuspid regurgitation 4. No significant pericardial effusion noted.
== END ==
PROVIDERS: PCP Emergency Medicine; Visit Provider Internal Medicine Cardiovascular Disease
DX: R06.00 Dyspnea, unspecified (principal)
CPT/HCPCS: 93306

== ENCOUNTER → 2018-04-18 14:15 | Outpatient (CLI) | payer MEDICARE, MEDICAID, SELFPAY ==
[2018-04-18 16:59] LABS: Free Thyroxine Index 2.9 ug/dL (5.93-13.13); Thyroid Stimulating Hormone 1.38 uIU/ml (0.358-3.740); Triiodothryronine (T3) Uptake 36 % (31-39)
[2018-04-20 12:31] LABS: Estradiol 52.5 pg/mL (.); FSH 7.1 mIU/mL (.); LH 4.8 mIU/mL (.)
== END ==
PROVIDERS: Visit Provider Nurse Practitioner Obstetrics & Gynecology
DX: N95.1 Menopausal and female climacteric states (principal); R53.82 Chronic fatigue, unspecified; R63.5 Abnormal weight gain
CPT/HCPCS: 36415; 82670; 83001; 83002; 84436; 84443; 84479

== ENCOUNTER 2024-06-26 14:53 | Outpatient (CLI) | payer MEDICARE, MEDICAID, SELFPAY ==
[2024-06-26 15:36] LABS: Hemoglobin 11.7 g/dL (12.2-16.2); Lymphocytes # 1.8 K/mm3 (0.7-4.5); Lymphocytes % 42.3 % (10-50); Mean Corpuscular HGB Conc 32.5 g/dL (31.8-35.4); Mean Corpuscular Hemoglobin 29.8 pg (27.0-31.2); Mean Corpuscular Volume 91.8 fl (81-99); Mean Platelet Volume 10.2 fl (7.4-10.4); Monocytes # 0.5 K/mm3 (0.1-1.0); Monocytes % 10.8 % (1.7-9.3); Neutrophils # 1.9 K/mm3 (1.8-7.8); Neutrophils % 44.7 % (37.0-80.0); Nucleated Red Blood Cells # 0 10^3/uL; Nucleated Red Blood Cells % 0 %; Platelet Count 150 K/mm3 (142-424); Red Blood Count 3.92 M/mm3 (4.20-5.40); Red Cell Distribution Width 18.6 % (11.5-17.5); Red Cell Distribution Width-SD 63.1 fL; White Blood Count 4.2 K/mm3 (4.8-10.8)
[2024-06-26 16:11] LABS: Alanine Aminotransferase 30 U/L (12-78); Albumin Level 3.1 g/dl (3.5-5.0); Alkaline Phosphatase 101 U/L (38-126); Anion Gap 8.7 mEq/L (5-15); Aspartate Amino Transferase 60 U/L (14-36); Bilirubin,Total 1.1 mg/dl (0.2-1.3); Blood Urea Nitrogen 5 mg/dl (7-17); Calcium 8.7 mg/dl (8.4-10.2); Carbon Dioxide 26 mmol/L (22.0-30.0); Chloride 108 mmol/L (98-107); Cholesterol 191 mg/dl (140-200); Estimated Glomerular Filt Rate 90 ml/min (>60); GFR (African American) 109 ML/MIN (>60); Globulin 3.1 g/dL (1.3-3.2); Glucose 89 mg/dl (74-100); Potassium 3.7 mmoL/L (3.5-5.1); Sodium 139 mmol/L (136-145); Total Protein,Serum 6.2 g/dl (6.3-8.2); Triglycerides 61 mg/dl (30-150); VLDL Cholesterol 12 mg/dL (0-40)
[2024-06-26 16:18] LABS: Chol/HDL Ratio 1.6 (1-3.5); HDL Cholesterol 118 mg/dl (40-60)
[2024-06-26 16:21] LABS: Direct LDL Cholesterol 53.71 mg/dL (100-129)
[2024-06-26 16:41] LABS: Thyroid Stimulating Hormone 1.15 uIU/mL (0.465-4.68)
[2024-06-26 16:57] LABS: Hepatitis C Ab Qual. W/ RFX NEGATIVE (Negative)
[2024-06-26 21:51] LABS: HIV Combo NEGATIVE (Negative)
[2024-06-27 12:12] LABS: Antinuclear Antibodies, IFA Negative (.)
== END 2024-06-26 23:59 | disposition home or self-care (01) ==
LOC: LAB 14:55
PROVIDERS: PCP Nurse Practitioner Family; Visit Provider Nurse Practitioner Family
DX: Z13.29 Encounter for screening for other suspected endocrine disorder (principal); Z13.220 Encounter for screening for lipoid disorders; Z11.59 Encounter for screening for other viral diseases; Z11.4 Encounter for screening for human immunodeficiency virus [HIV]; R53.83 Other fatigue; I10 Essential (primary) hypertension; F17.210 Nicotine dependence, cigarettes, uncomplicated
CPT/HCPCS: 36415; 80053; 80061; 84443; 85025; 86038; 86431; 86803; 87389

== ENCOUNTER 2024-07-26 13:56 | Outpatient (CLI) | payer MEDICARE, SELFPAY ==
--- NOTE | 2024-07-26 14:30 | MM_ITS ---
PROCEDURE INFORMATION: Exam: MG Bilateral Screening 3D Mammography Exam date and time: 07/26/2024 2:14 PM Age: 43 years old Clinical indication: Screening examination TECHNIQUE: Imaging protocol: Bilateral Screening tomosynthesis and 2D mammography including computer-aided detection (CAD) when performed. COMPARISON: No relevant prior studies available. FINDINGS: MAMMOGRAPHY: Breast composition: There are scattered areas of fibroglandular density. Mass: Questionable 0.5 cm mass in the right knee areolar region. Questionable 0.7 cm mass in the anterior right upper outer quadrant Architectural distortion: None. Calcifications: No suspicious calcifications. Asymmetric density: None. Skin thickening: None. Axillary adenopathy: None. IMPRESSION: Patient to be recalled for spot compression views of the right breast in the CC and MLO projections, a full 90 degree lateral view, and right breast ultrasound for further evaluation of two right breast masses. ASSESSMENT: BI-RADS Category 0: Incomplete- Need Additional Imaging Evaluation
[2024-07-26 14:45] LABS: Basophils % 0.5 % (0.1-2.0); Eosinophils # 0.1 Kmm3 (0.0-0.4); Eosinophils % 1.1 % (0.1-12.0); Hematocrit 37.6 % (37.0-47.0); Hemoglobin 12.4 g/dL (12.2-16.2); Immature Granulocytes # 0.01 10^3uL; Immature Granulocytes % 0.2 %; Lymphocytes % 30.8 % (10-50); Mean Corpuscular Hemoglobin 30.2 pg (27.0-31.2); Mean Corpuscular Volume 91.7 fl (81-99); Mean Platelet Volume 9.6 fl (7.4-10.4); Monocytes # 0.6 K/mm3 (0.1-1.0); Monocytes % 8.4 % (1.7-9.3); Neutrophils # 3.9 K/mm3 (1.8-7.8); Nucleated Red Blood Cells # 0 10^3/uL; Nucleated Red Blood Cells % 0 %; Platelet Count 164 K/mm3 (142-424); Red Cell Distribution Width 17.5 % (11.5-17.5); Red Cell Distribution Width-SD 57.4 fL; White Blood Count 6.6 K/mm3 (4.8-10.8)
[2024-07-26 15:17] LABS: Alanine Aminotransferase 40 U/L (12-78); Albumin Level 3.7 g/dl (3.5-5.0); Albumin/Globulin Ratio 1.3 (1.1-1.8); Alkaline Phosphatase 91 U/L (38-126); Anion Gap 8.2 mEq/L (5-15); Aspartate Amino Transferase 48 U/L (14-36); Bilirubin,Total 0.6 mg/dl (0.2-1.3); Blood Urea Nitrogen 4 mg/dl (7-17); Carbon Dioxide 22 mmol/L (22.0-30.0); Chloride 112 mmol/L (98-107); Chol/HDL Ratio 1.5 (1-3.5); Cholesterol 159 mg/dl (140-200); Estimated Glomerular Filt Rate 90 ml/min (>60); GFR (African American) 109 ML/MIN (>60); Globulin 2.8 g/dL (1.3-3.2); Glucose 60 mg/dl (74-100); HDL Cholesterol 107 mg/dl (40-60); Potassium 3.2 mmoL/L (3.5-5.1); Sodium 139 mmol/L (136-145); Total Protein,Serum 6.5 g/dl (6.3-8.2); Triglycerides 104 mg/dl (30-150); VLDL Cholesterol 21 mg/dL (0-40)
[2024-07-26 15:29] LABS: Direct LDL Cholesterol 43.93 mg/dL (100-129)
--- NOTE | 2024-07-26 15:32 | PC.NURSE ---
After attempting 2 loops patient stated she could not do this test and left. 6MWT was completed
[2024-07-26 15:35] LABS: 25-OH Vitamin D, Total 50.7 ng/mL (30-100)
[2024-07-26 15:48] LABS: Thyroid Stimulating Hormone 0.65 uIU/mL (0.465-4.68)
[2024-07-26 15:58] LABS: HIV Combo NEGATIVE (Negative)
[2024-07-26 16:14] LABS: Hepatitis C Ab Qual. W/ RFX NEGATIVE (Negative)
== END 2024-07-26 23:59 | disposition home or self-care (01) ==
PROVIDERS: PCP Nurse Practitioner Family; Visit Provider Nurse Practitioner Family
DX: Z12.31 Encounter for screening mammogram for malignant neoplasm of breast (principal); Z11.59 Encounter for screening for other viral diseases; I10 Essential (primary) hypertension; E55.9 Vitamin D deficiency, unspecified; R06.02 Shortness of breath
CPT/HCPCS: 36415; 77063; 77067; 80053; 80061; 82306; 84443; 85025; 86803; 87389; 94618

== ENCOUNTER 2024-09-24 11:33 | Emergency (ER) | payer MEDICARE, SELFPAY ==
[2024-09-24] VITALS (9 sets, daily range): BP systolic 123–149; BP diastolic 77–90; PULSE 69–99; RESP 11–18; TEMP 36.9–37.1; O2SAT 97–100; BMI 28.3
--- NOTE | 2024-09-24 11:35 | ECG_ITS ---
APPROVED REPORT Exam: Resting ECG HR:94 bpm ECG Measurements Heart Rate 94 AXES NM 149 P 71 QRSd 92 QRS 25 QT 358 T 49 QTc 410 Conclusion SINUS RHYTHM NORMAL ECG UNCONFIRMED REPORT Electronically signed by : Syd Knutson, 09/24/2024 15:27:17
--- NOTE | 2024-09-24 11:40 | ED_ITS ---
<Statement entered by Lesvia Knutson MD - 10/01/24 23:27> I was consulted by the DAVI, and we discussed the complexity of the problems being addressed. I approved the treatment and management plan for this patient's care in the emergency department, thus performing a substantive portion of the medical decision making. Lesvia Knutson MD, NICKI, FACEP Discharge Plan Disposition Patient Disposition: Home, Self-Care Condition: Good Prescriptions Prescriptions: No Action loratadine [Claritin] 10 mg Tablet 10 mg PO DAILY Referrals Follow up/Referrals: Jennifer Sheridan APRN [Nurse Practitioner, Behavioral Health] - See instructions Sudeep Hardy MD [Staff Physician, Cardiology] - See instructions Activity Restrictions/Add. Instructions Additional Instructions/Restrictions: As we discussed your workup today was negative for chest pain. I highly recommend following up with behavioral health for better management of your anxiety as well as following back up with cardiology. To that end I have referred you to both specialties. Please call tomorrow to make your appointment. If you have any persistent new or worsening signs or symptoms follow-up with your PCP return to the ER as needed. Clinical Impressions Clinical Impression: Anxiety Chest pain Qualifiers: Chest pain type: unspecified Qualified Code(s): R07.9 - Chest pain, unspecified Print Language Print Language: Kazakh Discharge ED Provider: Lesvia Knutson [facility] General Chief Complaint: Chest Pain Stated Complaint: CP Time Seen by Provider: 09/24/24 11:40 History of Present Illness HPI narrative: Patient presents for evaluation of chest pain. Patient states that she ate breakfast at [employer] this morning and and then around 930 had an episode of uncontrolled diarrhea and end up defecating on herself. Patient states that this distressed her and she began having chest pain. Patient does have a longstanding history of anxiety that is usually close she dated with chest symptoms however this is worse than she is experienced before. Patient does not have a known cardiovascular history other than hypertension. Patient denies any further episodes of diarrhea shortness of breath fever chills hemoptysis hematochezia melena nausea vomiting or. Related Data Home Medications ?Medication ?Instructions ?Recorded ?Confirmed loratadine 10 mg tablet (Claritin) 10 mg PO DAILY 11/1109/24/24 Allergies Allergy/AdvReac Type Severity Reaction Status Date / Time Penicillins (PENICILLINS) Allergy Intermediate Rash Verified 09/24/24 12:04 ampicillin Allergy Unknown Verified 09/24/24 12:04 allergy reaction morphine Allergy Palpitation Verified 09/24/24 12:04 s ibuprofen Allergy Severe unknown Uncoded 10/31/19 13:34 [facility] Disclaimer: The information contained in this section may have been updated after the patient was seen, as this information can be updated by other users. Social History Smoking Status: Current every day smoker tobacco type: cigarettes packs per day: 6 second hand exposure: Yes alcohol intake: current alcohol intake frequency: holidays/special occasions only counseling provided: none substance use type: denies use current occupational status: disabled Travel in the last 8 weeks?: Inside the [place] household members: significant other housing: house current occupational exposures/hazards: No caffeine: Yes Have you lived/traveled outside [place] in past 30 days?: No Contact w/someone who lives/traveled outside US past 30 days?: No Exposure to someone with infectious disease in past 14 days?: No Do you have a fever (greater than 100.4 F or 38 C)?: No Have you tested positive for COVID-19?: No Exposed to someone with COVID-19 in past 14 days?: No Do you have a sore throat?: No Do you have a cough?: No Do you have any weakness?: No Do you have any diarrhea?: No Are you experiencing any unusual bleeding?: No Do you have any muscle aches/pain?: No Do you have any abdominal pain?: No Are you experiencing loss of taste or smell?: No Other Medical History Have you received the Flu Vaccine for this season: Yes Have you received the Pneumonia Vaccine: No ROS Obtained: Yes Systems reviewed as appropriate & no additional complaints except as documented Physical Exam General General appearance: alert and in no apparent distress Respiratory Respiratory exam: Present normal lung sounds bilaterally Cardiovascular Cardiovascular exam: Present regular rate Neurological Exam Neurological exam: Present alert and oriented X3 HEART Score HEART Score HEART Score assessment performed?: Yes History (anamnesis): Slightly suspicious ECG: Normal Age: <45 years Risk factors: 1-2 risk factors Troponin: </= normal limit HEART Score: 1 Critical Care Critical Care Time Critical Care Time: No Medical Decision Making Medical Records Medical records reviewed: Yes I reviewed the patient's medical records. Baldev Inquiry Pt receiving controlled substance: No Vital Signs Vital Signs: 09/24/24 11:45 09/24/24 12:00 09/24/24 12:00 Temperature 98.8 F Temperature Source Oral Pulse Rate 99 H 90 Pulse Rate [Right] 99 H Respiratory Rate 18 13 Blood Pressure 130/82 Blood Pressure [Right Arm] 149/90 H Blood Pressure Mean [Right Arm] 109 02 Sat by Pulse Oximetry 100 100 Oxygen Delivery Method 09/24/24 12:30 09/24/24 13:00 09/24/24 13:30 Temperature Temperature Source Pulse Rate 75 90 84 Pulse Rate [Right] Respiratory Rate 12 13 12 Blood Pressure 139/87 125/77 133/81 Blood Pressure [Right Arm] Blood Pressure Mean [Right Arm] 02 Sat by Pulse Oximetry 100 99 100 Oxygen Delivery Method Room Air 09/24/24 14:00 09/24/24 14:30 09/24/24 15:00 Temperature Temperature Source Pulse Rate 86 75 69 Pulse Rate [Right] Respiratory Rate 16 18 11 L Blood Pressure 125/77 125/84 123/85 Blood Pressure [Right Arm] Blood Pressure Mean [Right Arm] 02 Sat by Pulse Oximetry 97 100 99 Oxygen Delivery Method Room Air 09/24/24 15:35 Temperature 98.5 F Temperature Source Pulse Rate 89 Pulse Rate [Right] Respiratory Rate 13 Blood Pressure 123/85 Blood Pressure [Right Arm] Blood Pressure Mean [Right Arm] 02 Sat by Pulse Oximetry Oxygen Delivery Method Room Air Lab Data Lab results reviewed: Yes I reviewed the patient's lab results. Labs: Lab Results 09/24/24 11:38: WBC 3.9 L, RBC 3.34 L, Hgb 10.4 L, Hct 31.5 L, MCV 94.3, MCH 31.1, MCHC 33.0, RDW 18.3 H, Plt Count 147, MPV 9.2, Neut % (Auto) 46.3, Lymph % (Auto) 37.4, [place] % (Auto) 13.1 H, Eos % (Auto) 2.1, Baso % (Auto) 0.8, Neut # (Auto) 1.8, Lymph # (Auto) 1.5, [place] # (Auto) 0.5, Eos # (Auto) 0.1, Baso # (Auto) 0.0, D-Dimer 0.86 H, Sodium 139, Potassium 3.8, Chloride 104, Carbon Dioxide 26, Anion Gap 12.8, BUN 6 L, Creatinine 0.60, Estimated Creat Clear 182, Estimated GFR 108, Est GFR ( Amer) 131, Glucose 103 H, Calcium 8.9, Total Bilirubin 0.8, AST 55 H, ALT 26, Alkaline Phosphatase 105, Troponin I < 0.01, Total Protein 6.8, Albumin 3.8, Globulin 3.0, Albumin/Globulin Ratio 1.3, Lipase 131 09/24/24 14:50: Troponin I < 0.01 09/24/24 11:38 09/24/24 11:38 Response Orders (Tests/Meds): ED MEDICATIONS Discontinued Medications Generic Name Dose Route Start Last Admin Trade Name Freq PRN Reason Stop Dose Admin Acetaminophen 1,000 mg 09/24/24 12:04 09/24/24 12:24 Acetaminophen 500mg Tab PO 09/24/24 12:05 1,000 mg ONCE ONE Administration Belladonna Alkaloids 60 ml 09/24/24 12:04 09/24/24 12:25 Belladonna Alkaloids 60 Ml Ml PO 09/24/24 12:05 60 ml ONCE ONE Administration Hydroxyzine Pamoate 25 mg 09/24/24 12:04 09/24/24 12:24 Hydroxyzine Pamoate 25mg Capsule PO 09/24/24 12:05 25 mg ONCE ONE Administration Ketorolac Tromethamine 15 mg 09/24/24 12:04 09/24/24 12:24 Ketorolac 30mg/Ml Vial IV 09/24/24 12:05 15 mg ONCE ONE Administration ORDERS Category Date Time Status Chest XR 2 view (NOT portable) [XR chest 2V] Stat Exams 09/24/24 12:00 Completed CBC w/Auto Diff [Complete Blood Count Auto Diff] Stat Lab 09/24/24 11:38 Completed CMP [Comprehensive Metabolic Panel] Stat Lab 09/24/24 11:38 Completed D-Dimer Stat Lab 09/24/24 11:38 Completed Lipase Stat Lab 09/24/24 11:38 Completed Trop I [Troponin I] Stat Lab 09/24/24 11:38 Completed Troponin I Q3H Lab 09/24/24 14:50 Completed MDM Narrative Medical Decision Narrative: In summary patient is a 43-year-old female who presents to the emergency department for evaluation of chest pain. Patient is hemodynamically stable upon arrival, afebrile. Physical exam reveals a well-nourished well-developed 43-year-old female is currently in no acute distress. Breath sounds gonial bilateral to the base without adventitious sounds, heart rate is 99 with sinus rhythm on the bedside monitor, heart sounds S1-S2 regular rate and rhythm without murmurs gallops rubs or thrills, abdomen soft nontender no rebound or guarding no rigidity. Patient appears to be visibly anxious.. Differential diagnosis includes ACS versus PE versus anxiety versus electrolyte disturbance etc. Initial workup will be conducted with hematologic labs twelve-lead EKG plain film chest x-ray. Initial interventions include Tylenol Zofran Vistaril. Initial workup reviewed by me shows that her hematologic labs are nonactionable first troponin is undetectable and my formal trepidation of plain film chest x- ray shows no acute processes.. Given this The patient was placed in observation status at 1300 hrs. Medical necessity for observational status is serial troponins. The patient was provided serial reevaluations continuous cardiac monitoring while awaiting results. Second troponin also was undetectable and upon reevaluation patient's symptoms had completely resolved. Given this patient is appropriate for discharge with referral both to behavioral health and back to cardiology for ongoing workup and management and strict return precautions.. Total time in observation was 3 hours.
--- NOTE | 2024-09-24 12:00 | XR_ITS ---
FINAL REPORT TECHNIQUE: Chest PA & Lateral CLINICAL HISTORY: Chest pain, sob COMPARISON: None FINDINGS: 2 views of the chest were performed. The heart size is normal. The mediastinum is within normal limits. There is no acute cardiopulmonary process. There are no pleural effusions. There is no pneumothorax. 20% thoracic dextroscoliosis is noted. IMPRESSION: No acute cardiopulmonary process. Reviewed, Interpreted and Dictated by Antonio Ramon MD Transcribed by Kendra Suarez Authenticated and [facility]
[2024-09-24 12:12] LABS: Hematocrit 31.5 % (37.0-47.0); Hemoglobin 10.4 g/dL (12.2-16.2); Immature Granulocytes % 0.3 %; Mean Corpuscular HGB Conc 33.0 g/dL (31.8-35.4); Mean Corpuscular Hemoglobin 31.1 pg (27.0-31.2); Mean Corpuscular Volume 94.3 fl (81-99); Nucleated Red Blood Cells % 0 %; Platelet Count 147 K/mm3 (142-424); Red Blood Count 3.34 M/mm3 (4.20-5.40); Red Cell Distribution Width-SD 63.0 fL; White Blood Count 3.9 K/mm3 (4.8-10.8)
[2024-09-24 12:18] LABS: Alanine Aminotransferase 26 U/L (12-78); Albumin Level 3.8 g/dl (3.5-5.0); Albumin/Globulin Ratio 1.3 (1.1-1.8); Alkaline Phosphatase 105 U/L (38-126); Anion Gap 12.8 mEq/L (5-15); Aspartate Amino Transferase 55 U/L (14-36); Bilirubin,Total 0.8 mg/dl (0.2-1.3); Blood Urea Nitrogen 6 mg/dl (7-17); Calcium 8.9 mg/dl (8.4-10.2); Carbon Dioxide 26 mmol/L (22.0-30.0); Chloride 104 mmol/L (98-107); Creatinine Clearance Estimated 182 mL/min (50-200); Creatinine,Serum 0.60 mg/dl (0.52-1.04); Estimated Glomerular Filt Rate 108 ml/min (>60); GFR (African American) 131 ML/MIN (>60); Globulin 3.0 g/dL (1.3-3.2); Glucose 103 mg/dl (74-100); Lipase 131 U/L (23-300); Potassium 3.8 mmoL/L (3.5-5.1); Sodium 139 mmol/L (136-145); Total Protein,Serum 6.8 g/dl (6.3-8.2)
[2024-09-24 12:23] LABS: D-Dimer 0.86 ug/mL (0.0-0.5)
[2024-09-24] MEDS: KETOROLAC 30MG/ML VIAL 15 MG IV (12:24)
[2024-09-24] MEDS: ACETAMINOPHEN 500MG TAB 1000 MG PO (12:24)
[2024-09-24] MEDS: BELLADONNA ALKALOIDS 60 ML ML PO (12:25)
[2024-09-24 12:33] LABS: Troponin I < 0.01 ng/ml (0.00-0.034)
[2024-09-24 15:22] LABS: Troponin I < 0.01 ng/ml (0.00-0.034)
== END 2024-09-24 15:36 | disposition home or self-care (01) ==
PROVIDERS: Physician Assistant; Emergency Provider Student in an Organized Health Care Education/Training Program
DX: R07.9 Chest pain, unspecified (principal); F41.1 Generalized anxiety disorder; F17.210 Nicotine dependence, cigarettes, uncomplicated
CPT/HCPCS: 71046; 80053; 83690; 84484; 85025; 85378; 93005; 96374; 99284; J1885